=== PATIENT | male | born 1955 | race Caucasian/White ===

== ENCOUNTER 2024-03-20 06:53 | Inpatient (IN) | payer BC, OTHER ==
[2024-03-20] MEDS ORDERED: morphine SULFATE 4 MG/ML VIAL ONE ×2 (07:42→11:41)
[2024-03-20] MEDS: ONDANSETRON 4 MG/2 ML VIAL IVPUSH ONE (07:45)
[2024-03-20] MEDS: morphine CARPU-JECT 4 MG/1 ML DISP.SYRIN IVPUSH ONE (07:49)
[2024-03-20] MEDS ORDERED: fentaNYL CITRATE 250 MCG/5 ML VIAL ONE (08:01)
[2024-03-20 08:08] LABS: BASO % 0.3 % (0-2.0); EOS % 1.2 % (0-4.5); HEMATOCRIT 46.6 % (35.4-49); HEMOGLOBIN 15.7 GM/dL (11.7-16.9); LYMPH % 17.3 % (8-40); MCH 31.1 pg (25.7-33.7); MCHC 33.7 g/dl (32.0-35.9); MEAN CELL VOLUME 92.4 fl (80-96); MEAN PLT VOLUME 8.2 fl (7.5-11.1); MONO % 5.6 % (3.8-10.2); NEUT % 75.6 % (42.8-82.8); PLATELET COUNT 173 10^3/uL (134-434); RBC 5.04 M/mm3 (4.00-5.60); RDW 14.6 % (11.9-15.9); WHITE BLOOD COUNT 5.3 K/mm3 (4.0-10.0)
[2024-03-20 08:14] LABS: POTASSIUM 4.4 mmol/L (3.5-5.1)
[2024-03-20 08:17] LABS: CALCIUM 9.5 mg/dL (8.5-10.1)
[2024-03-20 08:18] LABS: BLOOD UREA NITROGEN 14.6 mg/dL (7-18)
[2024-03-20 08:20] LABS: CREATININE 0.9 mg/dL (0.55-1.3)
[2024-03-20 08:21] LABS: BILIRUBIN,TOTAL 0.7 mg/dL (0.2-1)
[2024-03-20 08:23] LABS: TOT PROT 6.6 g/dl (6.4-8.2)
[2024-03-20 08:29] LABS: INR 0.9 (0.83-1.09); PROTHROMBIN TIME (PATIENT) 10.4 SEC (9.7-13.0)
[2024-03-20 08:32] LABS: ACTIVATED PTT 29.1 SECONDS (25.2-36.5)
[2024-03-20 11:43] LABS: PH,URINE 5.5 (5.0-8.0); URINE APPEARANCE CLEAR; URINE BILIRUBIN NEGATIVE (NEGATIVE); URINE COLOR YELLOW; URINE GLUCOSE (UA) 1+ (NEGATIVE); URINE KETONE 1+ (NEGATIVE); URINE LEUK ESTERASE NEGATIVE (NEGATIVE); URINE NITRITE NEGATIVE (NEGATIVE); URINE PROTEIN NEGATIVE (NEGATIVE); URINE UROBILINOGEN 0.2 mg/dL (0.2-1.0)
[2024-03-20] MEDS: morphine SULFATE 4 MG/ML VIAL IVPUSH ONE (11:45)
[2024-03-20] MEDS ORDERED: PIPERACILLIN/TAZOB 4.5 GM 4.5 GM in DEXTROSE 5%-WATER 100 ML IVPB ONE (11:47)
[2024-03-20] MEDS ORDERED: CEFEPIME HCL/D5W 1 GM/50 ML BAG IVPB ONE (12:04)
[2024-03-20] MEDS: CEFEPIME HCL 1 GM VIAL (RESTRICTED TO ID) IVPB ONE (12:16)
[2024-03-20] MEDS: LACTATED RINGERS SOLUTION 1000 ML INFUS.BAG IV ONE (12:25)
[2024-03-20] MEDS ORDERED: ACETAMINOPHEN INJECTION 100 ML ONE (12:46)
[2024-03-20] MEDS: ACETAMINOPHEN 1000 MG/100 ML BAG IVPB PRN (12:50)
[2024-03-20] MEDS: LACTATED RINGERS SOLUTION 1,000 ML/1,000 ML INFUS.BAG IV SCH (14:37)
[2024-03-20 15:45] VITALS: BMI 22.6
[2024-03-20] MEDS: ONDANSETRON 4 MG/2 ML VIAL IVPUSH PRN (16:00)
[2024-03-21] MEDS: ACETAMINOPHEN 1000 MG/100 ML BAG IVPB SCH (09:28)
[2024-03-21 09:33] LABS: BASO % 0.3 % (0-2.0); EOS % 0.5 % (0-4.5); HEMATOCRIT 41.1 % (35.4-49); HEMOGLOBIN 14.1 GM/dL (11.7-16.9); LYMPH % 15.2 % (8-40); MCH 31.7 pg (25.7-33.7); MCHC 34.3 g/dl (32.0-35.9); MEAN CELL VOLUME 92.3 fl (80-96); MEAN PLT VOLUME 8.2 fl (7.5-11.1); MONO % 8.2 % (3.8-10.2); NEUT % 75.8 % (42.8-82.8); PLATELET COUNT 148 10^3/uL (134-434); RBC 4.45 M/mm3 (4.00-5.60); RDW 14.1 % (11.9-15.9); WHITE BLOOD COUNT 6.6 K/mm3 (4.0-10.0)
[2024-03-21 09:53] LABS: POTASSIUM 4.1 mmol/L (3.5-5.1)
[2024-03-21 10:40] LABS: CALCIUM 8.7 mg/dL (8.5-10.1)
[2024-03-21 10:41] LABS: BLOOD UREA NITROGEN 10.9 mg/dL (7-18)
[2024-03-21 10:44] LABS: CREATININE 0.8 mg/dL (0.55-1.3)
[2024-03-21] MEDS: NICOTINE 7 MG/24 HOURS TOPICAL PATCH TD SCH (11:45)
[2024-03-21] MEDS: ENOXAPARIN NA (PORCINE) 40 MG/0.4 ML DISP.SYRIN SQ SCH (13:10)
[2024-03-21 22:07] VITALS: RESP 18
[2024-03-22 09:23] LABS: BASO % 0.4 % (0-2.0); EOS % 0.7 % (0-4.5); HEMATOCRIT 40.2 % (35.4-49); HEMOGLOBIN 13.5 GM/dL (11.7-16.9); LYMPH % 12.4 % (8-40); MCH 31.2 pg (25.7-33.7); MCHC 33.7 g/dl (32.0-35.9); MEAN CELL VOLUME 92.4 fl (80-96); MEAN PLT VOLUME 8.3 fl (7.5-11.1); MONO % 10.5 % (3.8-10.2); PLATELET COUNT 145 10^3/uL (134-434); RBC 4.35 M/mm3 (4.00-5.60); RDW 14.1 % (11.9-15.9); WHITE BLOOD COUNT 6.5 K/mm3 (4.0-10.0)
[2024-03-22 09:39] LABS: POTASSIUM 4.2 mmol/L (3.5-5.1)
[2024-03-22 09:43] LABS: CALCIUM 8.9 mg/dL (8.5-10.1)
[2024-03-22 09:44] LABS: ALBUMIN 3.2 g/dl (3.4-5.0); BLOOD UREA NITROGEN 9.8 mg/dL (7-18); MAGNESIUM 1.8 mg/dL (1.8-2.4)
[2024-03-22 09:47] LABS: CREATININE 0.7 mg/dL (0.55-1.3); PHOSPHOROUS 2.6 mg/dL (2.5-4.9)
[2024-03-22 09:48] LABS: BILIRUBIN,TOTAL 1.2 mg/dL (0.2-1); TOT PROT 5.8 g/dl (6.4-8.2)
[2024-03-23 06:55] VITALS: TEMP 98.6
[2024-03-23 09:49] LABS: BASO % 0.4 % (0-2.0); EOS % 1.6 % (0-4.5); HEMATOCRIT 38.7 % (35.4-49); HEMOGLOBIN 13.3 GM/dL (11.7-16.9); LYMPH % 13.6 % (8-40); MCH 31.6 pg (25.7-33.7); MCHC 34.2 g/dl (32.0-35.9); MEAN CELL VOLUME 92.3 fl (80-96); MEAN PLT VOLUME 8.3 fl (7.5-11.1); NEUT % 72.4 % (42.8-82.8); PLATELET COUNT 154 10^3/uL (134-434); WHITE BLOOD COUNT 4.9 K/mm3 (4.0-10.0)
[2024-03-23 10:07] LABS: POTASSIUM 3.8 mmol/L (3.5-5.1)
[2024-03-23] MEDS ORDERED: levoFLOXacin 750 MG TABLET PO ONE (10:30)
[2024-03-23] MEDS: metroNIDAZOLE 250 MG TABLET PO ONE (10:31)
[2024-03-23 10:35] LABS: CALCIUM 8.5 mg/dL (8.5-10.1)
[2024-03-23 10:39] LABS: CREATININE 0.6 mg/dL (0.55-1.3)
[2024-03-23 11:19] VITALS: BP 141/87; PULSE 57
== END 2024-03-23 11:45 | disposition home or self-care (01) | DRG 373 ==
LOC: JER 06:53 → JERBED 11:57 → J6S 14:34
PROVIDERS: ADMIT Internal Medicine; ATTEND Internal Medicine
DX: K35.32 Acute appendicitis with perforation, localized peritonitis, and gangrene, without abscess (principal); R10.31 Right lower quadrant pain
CPT/HCPCS: 36415; 74177-TC; 80048; 80053; 81003; 83605; 83690; 83735; 84100; 85025; 85610; 85730; 86850; 86900; 86901; 87086; 93005; 93010; 99285-25; J0131